=== PATIENT | female | born 1970 | race Caucasian/White ===

== ENCOUNTER → 2022-11-13 15:32 | Outpatient (BNVA) | payer OTHER, SELFPAY | PROVIDERS: Visit Provider Nurse Practitioner Family | DX: N39.0 Urinary tract infection, site not specified (principal) | CPT/HCPCS: 81003 ==

== ENCOUNTER → 2022-12-18 15:15 | Outpatient (BNVA) | payer OTHER, SELFPAY | PROVIDERS: Visit Provider Nurse Practitioner Family | DX: R05.9 Cough, unspecified (principal); Z20.822 Contact with and (suspected) exposure to COVID-19 | CPT/HCPCS: 87426 ==

== ENCOUNTER → 2023-03-19 10:45 | Outpatient (BNVA) | payer OTHER, SELFPAY | PROVIDERS: Visit Provider Family Medicine | DX: M50.20 Other cervical disc displacement, unspecified cervical region (principal); L81.4 Other melanin hyperpigmentation; L30.9 Dermatitis, unspecified; J30.2 Other seasonal allergic rhinitis; R23.2 Flushing | CPT/HCPCS: 80053; 80061; 84439; 84443; 85025 ==

== ENCOUNTER 2023-04-04 15:09 | Outpatient (CLI) | payer OTHER, SELFPAY ==
--- NOTE | 2023-04-04 15:24 | MM_ITS ---
WS: [id number] BILATERAL 3D TOMOSYNTHESIS DIGITAL DIAGNOSTIC MAMMOGRAPHY WITH CAD CLINICAL INFORMATION: ANNUAL HX BR CA HISTORY: Prior RIGHT lumpectomy COMPARISON: 2019 TECHNIQUE: Bilateral CC, MLO, and ML views. FINDINGS: The breasts are composed of heterogeneous fibroglandular density, which can limit the detection of sm all underlying mass lesions. Punctate and lucent centered calcifications. Vascular calcification. No suspicious focal mass, asymmetry, calcifications, or architectural distortion. No evidence of marine gnancy. IMPRESSION: MM/[place] [id number] BI-RADS: 2-Benign FOLLOW UP: 1 Year Follow-up Recommend return to annual diagnostic mammography.
== END 2023-04-04 15:10 | disposition home or self-care (01) ==
LOC: RAD 15:10
PROVIDERS: Visit Provider Family Medicine
DX: Z85.3 Personal history of malignant neoplasm of breast (principal); R92.323 Mammographic fibroglandular density, bilateral breasts; R92.1 Mammographic calcification found on diagnostic imaging of breast
CPT/HCPCS: 77062; G0279

== ENCOUNTER → 2023-06-27 15:04 | Outpatient (BNVA) | payer OTHER, SELFPAY | PROVIDERS: Visit Provider Emergency Medicine | DX: R09.81 Nasal congestion (principal); K52.9 Noninfective gastroenteritis and colitis, unspecified; S30.861A Insect bite (nonvenomous) of abdominal wall, initial encounter; W57.XXXA Bitten or stung by nonvenomous insect and other nonvenomous arthropods, initial encounter; R19.7 Diarrhea, unspecified | CPT/HCPCS: 87045; 87400; 87427; 87449 ==

== ENCOUNTER 2023-10-18 15:46 | Emergency (ER) | payer OTHER, SELFPAY ==
[2023-10-18 15:53] VITALS: BP 119/79; PULSE 80; RESP 16; TEMP 36.8; O2SAT 98
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
[2023-10-18 16:49] LABS: Basophils % 0.7 %; Eosinophils # 0.1 10^3/uL (0.0-0.8); Eosinophils % 1.4 %; Lymphocytes # 1.9 10^3/uL (0.8-4.8); Lymphocytes % 33.6 %; Mean Corpuscular HGB Conc 34.7 g/dL (30-55); Mean Corpuscular Hemoglobin 30.9 pg (27-33); Mean Platelet Volume 10.2 fL (7.4-10.4); Monocytes # 0.6 10^3/uL (0.2-0.9); Monocytes % 9.7 %; Neutrophils # 3.06 10^3/uL (1.8-7.7); Neutrophils % 54.2 %; Nucleated Red Blood Cells % 0 %; Platelet Count 255 10^3/cmm (157-399); Red Blood Count 4.27 10^6/uL (3.85-5.65); Red Cell Distribution Width 12.6 % (12.1-15.1); White Blood Count 5.65 10^3/uL (3.29-11.43)
[2023-10-18] MEDS: iohexol 350 mg/mL 500 mL Btl (per mL) IV (16:57)
[2023-10-18 17:03] LABS: Alanine Aminotransferase 22 U/L (0-33); Albumin Level 4.6 g/dL (3.5-5.2); Alkaline Phosphatase 121 U/L (35-105); Anion Gap 14.7 (5-19); Aspartate Amino Transferase 29 U/L (0-32); Blood Urea Nitrogen 11 mg/dL (6-20); Calcium 9.7 mg/dL (8.5-10.5); Carbon Dioxide 25 mmol/L (22-29); Chloride 106 mmol/L (98-107); Globulin 2.9 g/dL (1.3-4.6); Glomerular Filtration Rate 128.1 mL/min (90-130); Glucose 102 mg/dL (65-115); Osmolality Calculated 294 mOsm/kg (285-295); Potassium 3.7 mmol/L (3.5-5.1); Sodium 142 mmol/L (136-145); Total Bilirubin 0.3 mg/dL (0.15-1.2); Total Protein 7.5 g/dL (6.6-8.7)
[2023-10-18] MEDS: orphenadrine 30 mg/mL Inj 2 mL 60 MG IVP (17:19)
[2023-10-18] MEDS: ketorolac 30 mg/mL INJ 15 MG IVP (17:19)
[2023-10-18 17:34] LABS: Charge for UA Resulting for Rev
[2023-10-18 17:37] LABS: Bilirubin Urine Negative (Negative); Blood Urine Negative (Negative); Glucose Urine UA Negative (Normal); Ketones Urine Negative (Negative); Leukocyte Esterase Urine Negative (Negative); Nitrate Urine Negative (Negative); Protein Urine Trace (Negative); Urine Appearance Clear (CLEAR); Urine Color Yellow (Yellow); pH Urine 6.5 (5-7)
[2023-10-18 17:42] LABS: Bacteria Urine None Seen /hpf; Hyaline Casts Urine 2.05 /lpf; RBC Urine 0-2 /hpf (0-2); Specific Gravity, Urine 1.032 (1.005-1.030); Squamous Epithelial Cell Urine 0-5 /hpf (0-5); WBC Urine 0-5 /hpf (0-5)
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
[2023-10-18 18:39] VITALS: BP 125/82; PULSE 78; RESP 16; TEMP 36.8; O2SAT 99
== END 2023-10-18 18:34 | disposition home or self-care (01) ==
PROVIDERS: Emergency Provider Physician Assistant
DX: S60.011A Contusion of right thumb without damage to nail, initial encounter (principal); R51.9 Headache, unspecified; R10.31 Right lower quadrant pain; Z85.3 Personal history of malignant neoplasm of breast; Z92.3 Personal history of irradiation; V53.5XXA Driver of pick-up truck or van injured in collision with car, pick-up truck or van in traffic accident, initial encounter
CPT/HCPCS: 70450; 71260; 72125; 73110; 73140; 74177; 80053; 81003; 81015; 85025; 96374; 96375; 99285; J1885; J2360; Q9967

== ENCOUNTER 2024-02-26 07:24 | Outpatient (RCR) | payer OTHER, SELFPAY | END 2024-03-26 23:59 | disposition home or self-care (01) | LOC: SPT 07:24 | PROVIDERS: PCP Family Medicine; Visit Provider Family Medicine | DX: M54.50 Low back pain, unspecified (principal); G89.29 Other chronic pain | CPT/HCPCS: 97110; 97161 ==

== ENCOUNTER 2024-04-15 08:55 | Outpatient (RCR) | payer OTHER, SELFPAY | END 2024-04-23 23:59 | disposition home or self-care (01) | LOC: SPT 08:55 | PROVIDERS: PCP Family Medicine; Visit Provider Family Medicine | DX: M54.50 Low back pain, unspecified (principal); G89.29 Other chronic pain | CPT/HCPCS: 97110; 97164; 97530 ==

== ENCOUNTER → 2024-10-18 15:51 | Outpatient (BNVA) | payer OTHER, SELFPAY | PROVIDERS: PCP Family Medicine; Visit Provider Family Medicine | DX: R39.9 Unspecified symptoms and signs involving the genitourinary system (principal) | CPT/HCPCS: 81000 ==

== ENCOUNTER 2024-11-17 14:45 | Outpatient (CLI) | payer OTHER, SELFPAY ==
--- NOTE | 2024-11-17 14:45 | MM_ITS ---
WS: [id number] VIEWS: MLO, CC, and ML views both breasts. 3D digital tomosynthesis is also included in this exam. Comparison made with prior exam of 09/29/2019 and 04/04/2023. Findings: The breasts are extremely dense, which lowers the sensitivity of mammography. No sign of suspicious mass, tumor calcification or architectural distortion. Regional ultrasound of the RIGHT breast is recommended for further work-up. MM/MM diag BI tomosynthesis [id number] Impression: BI-RADS: 0 - Incomplete: Need additional imaging evaluation FOLLOW-UP: See Report This mammogram was also analyzed by the Computer Aided Detection System R2 [employer] Outcomes Liaison.
--- NOTE | 2024-11-17 15:35 | US_ITS ---
WS: [id number] Exam: US breast RT limited* [id number] Date/Time of Exam: 11/17/2024 3:54 PM Reason For Exam: HISTORY OF BREAST CANCER RT BREAST Patient directed area of pain at the 6 o'clock position in the RIGHT breast was evaluated with ultrasound. This is also the site of previous biopsy with scar. There was no evidence of suspicious solid mass or nodule in this region. No cysts were identified. There were no abnormal ultrasound findings in this region. Recommendations: Continued yearly screening mammography. US/US breast RT limited* [id number] IMPRESSION: 1. No sign of suspicious solid mass or nodule.
== END 2024-11-17 14:46 | disposition home or self-care (01) ==
PROVIDERS: PCP Family Medicine; Visit Provider Family Medicine
DX: N64.4 Mastodynia (principal); Z85.3 Personal history of malignant neoplasm of breast
CPT/HCPCS: 76642; 77062; G0279

== ENCOUNTER → 2024-11-20 10:17 | Outpatient (BNVA) | payer OTHER, SELFPAY | PROVIDERS: PCP Family Medicine | DX: R30.0 Dysuria (principal) | CPT/HCPCS: 81000 ==